=== PATIENT | female | born 1960 | race Caucasian/White ===

== ENCOUNTER 2019-02-17 18:58 | Inpatient (IN) | payer MEDICAID, OTHER ==
[~2019-02-17] VITALS: Ht 157.5 cm; Wt 70.3 kg
[~2019-02-17 18:58] MED LIST: BUTA1CAP45 PO; GLIP5TAB12 PO; MECL-109 PO; METF-414 PO; ONDA4TAB5 PO
[2019-02-17] MEDS ORDERED: SODIUM CHLORIDE 0.9% 1,000 ML IV ONE (21:33)
[2019-02-17] MEDS ORDERED: ONDANSETRON HCL 4MG/2ML INJ IV STA (21:33)
[2019-02-17] MEDS ORDERED: MECLIZINE 25MG TABLET PO ONE (21:45)
[2019-02-17 22:27] LABS: BASOPHILS % 0.4 % (0.0-2.0); EOSINOPHILS % 2.7 % (0.0-5.0); HEMATOCRIT. 40.7 % (36.0-48.0); HEMOGLOBIN. 13.6 g/dL (12.0-16.0); LYMPHOCYTES % 30.5 % (20.0-50.0); MEAN CORPUSCULAR HEMOGLOBIN 26.4 pg (28.0-32.0); MEAN PLATELET VOLUME 8.5 fl (7.4-10.4); MONOCYTES % 5.9 % (2.0-8.0); NEUTROPHILS % 60.5 % (40.0-76.0); PLATELET 284 x1000/uL (130-400); RED BLOOD CELL COUNT 5.15 mill/uL (4.2-5.4); RED CELL DISTRIBUTION WIDTH 14.2 % (11.6-14.6)
[2019-02-17 22:30] LABS: CLARITY URINE CLEAR (CLEAR); COLOR URINE YELLOW (YELLOW); KETONES URINE NEGATIVE (NEGATIVE); LEUKOCYTE ESTERASE URINE NEGATIVE (NEGATIVE); NITRITE URINE NEGATIVE (NEGATIVE); OCCULT BLOOD URINE NEGATIVE (NEGATIVE); PH URINE 5.5 (4.5-8.0); PROTEIN URINE NEGATIVE (NEGATIVE); SPECIFIC GRAVITY URINE 1.006 (1.005-1.030); UROBILINOGEN URINE 0.2 E.U./dL (0.2-1.0)
[2019-02-17 22:31] LABS: CHLORIDE 109 mEq/L (98-107)
[2019-02-17 22:35] LABS: ETHANOL BLOOD < 10 mg/dL
[2019-02-17 22:39] LABS: *AMPHETAMINES SCREEN URINE NEGATIVE (NEGATIVE); *BARBITURATES SCREEN URINE NEGATIVE (NEGATIVE); *BENZODIAZEPINES SCREEN URINE NEGATIVE (NEGATIVE); *COCAINE SCREEN URINE NEGATIVE (NEGATIVE)
[2019-02-17 22:40] LABS: CANNABINOID URINE SCREEN NEGATIVE (NEGATIVE); OPIATES URINE SCREEN NEGATIVE (NEGATIVE); PHENCYCLIDINE URINE SCREEN NEGATIVE (NEGATIVE)
[2019-02-17 22:40] LABS: CREATINE KINASE 66 IU/L (26-192)
[2019-02-17 22:42] LABS: METHADONE URINE SCREEN NEGATIVE (NEGATIVE)
[2019-02-18] MEDS ORDERED: DIPHENHYDRAMINE 50MG/ML VIAL IV PRN (01:45)
[2019-02-18] MEDS ORDERED: DEXTROSE 50% WATER 50ML SYRINGE IV PRN (01:45)
[2019-02-18] MEDS ORDERED: ACETAMINOPHEN 325MG TABLET PO PRN (01:45)
[2019-02-18] MEDS ORDERED: CLONIDINE 0.1MG TABLET PO PRN (01:45)
[2019-02-18] MEDS ORDERED: MAGNESIUM/ALUMINUM HYDROXIDE/SIMETHICONE 30ML UDC PO PRN (01:45)
[2019-02-18 03:00] VITALS: BP 114/96
[2019-02-18 03:30] VITALS: BP 150/87
[2019-02-18] MEDS ORDERED: BENA10TA12 PO (03:45)
[2019-02-18] MEDS ORDERED: ATOR20TA65 PO (03:45)
[2019-02-18] MEDS: OMEPRAZOLE 20MG CAPSULE EXTENDED RELEASE PO SCH ×2 (06:04→21:01)
[2019-02-18] MEDS: MECLIZINE 25MG TABLET PO SCH ×3 (06:05→21:01)
[2019-02-18] MEDS: GLIMEPIRIDE 2MG TABLET PO SCH (06:05)
[2019-02-18] MEDS: SODIUM CHLORIDE 0.9% INJ 3ML FLUSH IVF SCH ×3 (06:36→21:01)
[2019-02-18] MEDS: BLOOD SUGAR DIAGNOSTIC STRIP TEST SCH ×4 (06:36→21:02)
[2019-02-18] MEDS ORDERED: PNEUMOCOCCAL 23-VAL P-SAC VAC 0.5 ML IM ONE (08:00)
[2019-02-18] MEDS: INSULIN LISPRO 100 UNITS/ML SUBCUT SCH ×4 (09:43→21:00)
[2019-02-18] MEDS: INSULIN GLARGINE UD 100 UNITS/ML SYR SUBCUT SCH (09:45)
[2019-02-18] MEDS: ENOXAPARIN 40MG/0.4ML SYR SUBCUT SCH (09:48)
[2019-02-18] MEDS: METFORMIN HCL 500MG TABLET PO SCH ×2 (09:48→17:51)
[2019-02-18] MEDS ORDERED: INFLUENZA VIRUS VACCINE(AFLURIA) 0.5ML SYR IM ONE (10:00)
[2019-02-18] MEDS ORDERED: INSULIN GLARGINE UD 100 UNITS/ML SYR SUBCUT SCH (10:00)
[2019-02-18] MEDS: BENAZEPRIL 10MG TABLET PO SCH (10:11)
[2019-02-18 12:00] VITALS: BP 119/67
[2019-02-18] MEDS: PIOGLITAZONE 15MG TABLET PO SCH (13:35)
[2019-02-18 16:00] VITALS: BP 135/70
[2019-02-18] MEDS ORDERED: MAGNESIUM 2 G PREMIX 50 ML IV NR (18:00)
[2019-02-18 20:00] VITALS: BP 126/78
[2019-02-18] MEDS ORDERED: ATORVASTATIN CALCIUM 20MG TABLET PO SCH (21:00)
[2019-02-19] VITALS: BP 118/58
[2019-02-19 04:00] VITALS: BP 121/71
[2019-02-19] MEDS: MECLIZINE 25MG TABLET PO SCH ×3 (05:35→17:35)
[2019-02-19] MEDS: SODIUM CHLORIDE 0.9% INJ 3ML FLUSH IVF SCH ×2 (05:35→13:41)
[2019-02-19] MEDS: OMEPRAZOLE 20MG CAPSULE EXTENDED RELEASE PO SCH (06:33)
[2019-02-19] MEDS: BLOOD SUGAR DIAGNOSTIC STRIP TEST SCH ×3 (06:33→17:35)
[2019-02-19] MEDS: GLIMEPIRIDE 2MG TABLET PO SCH (06:33)
[2019-02-19] MEDS: INSULIN LISPRO 100 UNITS/ML SUBCUT SCH ×3 (07:50→17:39)
[2019-02-19 08:00] VITALS: BP 129/69
[2019-02-19] MEDS: BENAZEPRIL 10MG TABLET PO SCH (09:44)
[2019-02-19] MEDS: PIOGLITAZONE 15MG TABLET PO SCH (09:44)
[2019-02-19] MEDS: ENOXAPARIN 40MG/0.4ML SYR SUBCUT SCH (09:46)
[2019-02-19] MEDS: METFORMIN HCL 500MG TABLET PO SCH ×2 (09:46→17:39)
[2019-02-19] MEDS: INSULIN GLARGINE UD 100 UNITS/ML SYR SUBCUT SCH (10:38)
[2019-02-19 12:00] VITALS: BP 122/70
[2019-02-19] MEDS ORDERED: ASPIRIN 325MG EC TABLET PO SCH (15:00)
[2019-02-19 16:00] VITALS: BP 132/76
[2019-02-19 19:48] VITALS: BP 146/79
[2019-02-19] MEDS ORDERED: ATORVASTATIN CALCIUM 20MG TABLET PO SCH (21:00)
[2019-02-20] MEDS ORDERED: FAMOTIDINE 20MG TABLET PO SCH (09:00)
== END 2019-02-19 20:25 | disposition home or self-care (01) | DRG 45 ==
LOC: ER 18:58 → 6WST 02-18 00:05 → EDBEDREQDT 02-18 00:09 → EDBEDREQTM 02-18 00:09 → EDBEDREQ 02-18 00:09 → ENRESERV 02-18 02:19
PROVIDERS: ADMIT Internal Medicine; ATTEND Internal Medicine
DX: I63.9 Cerebral infarction, unspecified (principal); E11.65 Type 2 diabetes mellitus with hyperglycemia; I10 Essential (primary) hypertension; E66.9 Obesity, unspecified; E78.00 Pure hypercholesterolemia, unspecified; K21.9 Gastro-esophageal reflux disease without esophagitis; K30 Functional dyspepsia; E78.5 Hyperlipidemia, unspecified; G40.909 Epilepsy, unspecified, not intractable, without status epilepticus; I49.3 Ventricular premature depolarization; Z83.3 Family history of diabetes mellitus; Z79.899 Other long term (current) drug therapy; Z68.28 Body mass index [BMI] 28.0-28.9, adult; Z79.4 Long term (current) use of insulin
CPT/HCPCS: 36415; 70551; 71045; 80053; 80061; 80305; 80320; 81003; 82550; 82962; 83036; 83735; 83880; 84443; 84484; 85025; 90686; 93005; 93306; 93880; 96361; 96374; 97162; 99285; J1650; J1815; J2405; J3475; J7030; J7040; J8597; G0480

== ENCOUNTER 2021-06-12 17:34 | Emergency (ER) | payer MEDICAID ==
[~2021-06-12] VITALS: Ht 165.1 cm; Wt 75.0 kg
[~2021-06-12 17:34] MED LIST changes: +BENA10TA74 PO; -MECL-109 PO
[2021-06-12] MEDS ORDERED: SODIUM CHLORIDE 0.9% 1,000 ML IV ONE (19:15)
[2021-06-12 19:42] LABS: BASOPHILS % 0.3 % (0.0-2.0); CHLORIDE 107 mEq/L (98-107); EOSINOPHILS % 4.6 % (0.0-5.0); HEMATOCRIT. 35.4 % (36.0-48.0); HEMOGLOBIN. 11.7 g/dL (12.0-16.0); LYMPHOCYTES % 27.9 % (20.0-50.0); MEAN CORPUSCULAR HEMOGLOBIN 25.5 pg (28.0-32.0); MEAN CORPUSCULAR VOLUME 77.2 fL (81.0-99.0); MEAN PLATELET VOLUME 8.6 fl (7.4-10.4); MONOCYTES % 5.4 % (2.0-8.0); NEUTROPHILS % 61.8 % (40.0-76.0); PLATELET 292 x1000/uL (130-400); RED BLOOD CELL COUNT 4.59 mill/uL (4.2-5.4); RED CELL DISTRIBUTION WIDTH 16.3 % (11.6-14.6)
[2021-06-12 19:49] LABS: CLARITY URINE CLEAR (CLEAR); COLOR URINE YELLOW (YELLOW); KETONES URINE NEGATIVE (NEGATIVE); LEUKOCYTE ESTERASE URINE TRACE (NEGATIVE); NITRITE URINE NEGATIVE (NEGATIVE); OCCULT BLOOD URINE NEGATIVE (NEGATIVE); PH URINE 6.5 (4.5-8.0); PROTEIN URINE 1+ (NEGATIVE); SPECIFIC GRAVITY URINE 1.021 (1.005-1.030); UROBILINOGEN URINE 0.2 E.U./dL (0.2-1.0)
[2021-06-12 19:50] LABS: CREATINE KINASE 103 IU/L (26-192)
[2021-06-12 20:14] LABS: *AMPHETAMINES SCREEN URINE NEGATIVE (NEGATIVE); *BARBITURATES SCREEN URINE NEGATIVE (NEGATIVE)
[2021-06-12 20:15] LABS: *BENZODIAZEPINES SCREEN URINE NEGATIVE (NEGATIVE); *COCAINE SCREEN URINE NEGATIVE (NEGATIVE); CANNABINOID URINE SCREEN NEGATIVE (NEGATIVE); METHADONE URINE SCREEN NEGATIVE (NEGATIVE); OPIATES URINE SCREEN NEGATIVE (NEGATIVE); PHENCYCLIDINE URINE SCREEN NEGATIVE (NEGATIVE)
[2021-06-12] MEDS ORDERED: KEPP500 MT (21:21)
[2021-06-12 21:49] VITALS: BP 136/89
== END 2021-06-12 22:07 | disposition home or self-care (01) ==
LOC: ER 17:34
DX: G40.909 Epilepsy, unspecified, not intractable, without status epilepticus (principal); E11.9 Type 2 diabetes mellitus without complications; I10 Essential (primary) hypertension; Z86.73 Personal history of transient ischemic attack (TIA), and cerebral infarction without residual deficits; Z79.84 Long term (current) use of oral hypoglycemic drugs
CPT/HCPCS: 36415; 80053; 80305; 81003; 82550; 85025; 93005; 96360; 99284; J7030

== ENCOUNTER 2024-02-29 19:52 | Emergency (ER) | payer MEDICAID ==
[~2024-02-29] VITALS: Ht 165.1 cm; Wt 75.0 kg
[~2024-02-29 19:52] MED LIST changes: -GLIP5TAB12 PO; +GLIP5TAB22 PO; +KEPP500 MT
[2024-02-29 19:55] VITALS: O2SAT 97
[2024-02-29] MEDS: SODIUM CHLORIDE 0.9% 1,000 ML IV ONE (20:50)
[2024-02-29] MEDS: KETOROLAC 30MG/ML VIAL IV STA (20:50)
[2024-02-29] MEDS: ACETAMINOPHEN 325MG TABLET PO STA (20:50)
[2024-02-29] MEDS: ONDANSETRON HCL 4MG/2ML INJ IV STA (20:50)
[2024-02-29] MEDS: PROCHLORPERAZINE 10MG/2ML VIAL IV PRN (22:42)
[2024-02-29] MEDS: DIPHENHYDRAMINE 50MG/ML VIAL IV ONE (22:42)
[2024-03-01] MEDS ORDERED: METO-293 MT (00:28)
[2024-03-01 01:18] VITALS: BP 150/75; PULSE 70; RESP 18; TEMP 37.16964; O2SAT 97
== END 2024-03-01 01:22 | disposition home or self-care (01) ==
LOC: ER 19:52
DX: G43.909 Migraine, unspecified, not intractable, without status migrainosus (principal); E11.9 Type 2 diabetes mellitus without complications; G44.89 Other headache syndrome; I10 Essential (primary) hypertension; Z86.73 Personal history of transient ischemic attack (TIA), and cerebral infarction without residual deficits
CPT/HCPCS: 99285; 96374; 70450; 96375; 96361; J1200; J1885; J2405; J7030